=== PATIENT | female | born 1990 | race Two or more races ===

== ENCOUNTER 2023-02-20 10:17 | Emergency (ER) | payer MEDICAID ==
[~2023-02-20] VITALS: Ht 170.2 cm; Wt 95.2 kg
[2023-02-20] MEDS ORDERED: KETOROLAC TROMETH 60MG/2ML VIAL IM ONE (11:15)
[2023-02-20 11:22] VITALS: BP 139/77
[2023-02-20] MEDS ORDERED: HYDR-4902 PO (12:07)
[2023-02-20] MEDS ORDERED: IBUP-1455 PO (12:07)
== END 2023-02-20 12:12 | disposition home or self-care (01) ==
LOC: ER 10:17
DX: S82.65XA Nondisplaced fracture of lateral malleolus of left fibula, initial encounter for closed fracture (principal); X50.1XXA Overexertion from prolonged static or awkward postures, initial encounter; Y93.89 Activity, other specified; Y92.89 Other specified places as the place of occurrence of the external cause; Y99.8 Other external cause status
CPT/HCPCS: 29515; 73610; 96372; 99283; J1885